=== PATIENT | female | born 1955 | race Caucasian/White ===

== ENCOUNTER → 2021-08-17 12:05 | Outpatient (CLI) | payer MEDICARE, OTHER, SELFPAY ==
[2021-08-17 13:08] LABS: Add Manual Diff / Slide Review NO; Basophils Absolute Auto 100 /uL (0-100); Eosinophils Absolute Auto 100 /uL (0-450); Eosinophils Percent Auto 2.3 % (2-4); Hematocrit 42.6 % (36-46); Hemoglobin 14.5 g/dL (12.0-16.0); Lymphocytes Absolute Auto 1900 /uL (1100-4500); Lymphocytes Percent Auto 33.2 % (25-40); Mean Corpuscular Hemoglobin 29.2 PG (26-34); Mean Corpuscular Volume 85.9 fL (80-100); Monocytes Absolute Auto 500 /uL (0-900); Monocytes Percent Auto 7.9 % (3-14); Neutrophils Absolute Auto 3200 /uL (1500-7000); Neutrophils Percent Auto 55.6 % (50-75); Platelet Count 302 X10^3/uL (150-400); Red Blood Cell Count 4.96 X10^6/uL (4.0-5.2); White Blood Cell Count 5.8 X10^3/uL (4.5-11.0)
[2021-08-17 13:34] LABS: Alanine Aminotransferase 17 IU/L (<35); Albumin 4.5 g/dL (3.5-5.0); Albumin Globulin Ratio 1.4 (1.0-2.8); Alkaline Phosphatase 91 U/L (38-126); Aspartate Aminotransferase 27 IU/L (14-36); BUN Creatinine Ratio 27.3 (6-22); Bilirubin Total 0.5 mg/dL (0.2-1.3); Blood Urea Nitrogen 18 mg/dL (7-17); Calcium 9.8 mg/dL (8.4-10.2); Carbon Dioxide 29 mmol/L (22-32); Chloride 106 mmol/L (98-107); Cholesterol 212 mg/dL (140-199); Estimated Glomerular Filt Rate > 60.0 mL/min (>60); Globulin 3.2 g/dL (1.7-4.1); Glucose 102 mg/dL (80-110); HDL Cholesterol 68 mg/dL (40-60); HEMOLYSIS < 15 (0-50); LDL Cholesterol Calculated 128 mg/dL (<100); Potassium 3.9 mmol/L (3.4-5.1); Sodium 140 mmol/L (137-145); Total Protein 7.7 g/dL (6.3-8.2); Triglycerides 82 mg/dL (35-150)
[2021-08-17 14:03] LABS: TSH w/ Reflex to FT4 4.37 uIU/mL (0.47-4.68)
[2021-08-17 14:51] LABS: Creatinine Urine Random 68.3 mg/dL
[2021-08-17 15:02] LABS: Microalbumin Urine Random < 0.6 mg/dL (0-1.6)
== END ==
PROVIDERS: Family Provider Internal Medicine Critical Care Medicine; Referring Provider Family Medicine; Visit Provider Family Medicine
DX: F32.9 Major depressive disorder, single episode, unspecified (principal); R53.82 Chronic fatigue, unspecified; F43.10 Post-traumatic stress disorder, unspecified; G89.29 Other chronic pain; M79.7 Fibromyalgia; M54.9 Dorsalgia, unspecified; J44.9 Chronic obstructive pulmonary disease, unspecified; E78.5 Hyperlipidemia, unspecified
CPT/HCPCS: 36415; 80053; 80061; 82043; 82570; 84443; 85025; 86769

== ENCOUNTER → 2021-08-18 12:49 | Outpatient (CLI) | payer MEDICARE, OTHER, SELFPAY ==
--- NOTE | 2021-08-18 12:54 | DI.CT.S_ITS ---
PROCEDURE: CT CHEST WO CON INDICATIONS: COPD, 30+ pack year history TECHNIQUE: Noncontrast 5 mm thick sections acquired from the pulmonary apices to the posterior costophrenic angles. 1 mm lung window, 5 mm thick coronal and sagittal and 7 mm axial MIP reformats were then acquired. For radiation dose reduction, the following was used: automated exposure control, adjustment of mA and/or kV according to patient size. COMPARISON: CR, CHEST 2 VIEW, 01/31/2016, 14:40. FINDINGS: Image quality: Excellent. Lungs and pleura: No acute air space opacities. No pleural effusions or pneumothorax. Central and peripheral airways are patent and normal in caliber. Emphysematous changes are present bilaterally with scattered chronic reticular opacities. Mediastinum: Heart size is normal. Mild minimal, 6 mm anterior pericardial effusion. No mediastinal adenopathy by size criteria. Thoracic aorta and central pulmonary arteries are normal in size. Esophagus is normal in caliber. No hiatal hernia. Bones and chest wall: No suspicious bony lesions. No vertebral body compression fractures. No axillary or supraclavicular adenopathy by size criteria. Thyroid gland is unremarkable . Abdomen: Visualized upper abdominal solid organs and bowel loops appear normal in the absence of contrast. IMPRESSION: 1. Prominent emphysematous changes without focal lesion. Dictated by: Olivia Rod M.D. on 08/18/2021 at 15:17 Approved by: Olivia Rod M.D. on 08/18/2021 at 15:19
== END ==
PROVIDERS: Family Provider Internal Medicine Critical Care Medicine; PCP Family Medicine; Referring Provider Family Medicine; Visit Provider Family Medicine
DX: J44.9 Chronic obstructive pulmonary disease, unspecified (principal); Z87.891 Personal history of nicotine dependence
CPT/HCPCS: 71250

== ENCOUNTER → 2021-09-17 14:40 | Outpatient (CLI) | payer MEDICARE, OTHER, SELFPAY ==
--- NOTE | 2021-09-17 14:41 | DI.ECHO.S_ITS ---
Version: 1 Study ID: [id number] [address] [place] [address] Name: CHECO RIVERA Study Date: 09/17/2021, 3: 00 PM : 1955 BP: 107 / 73 mmHg Gender: Female Height: 64 in Age: 65 Years Weight: 190 lb BSA: 1.91 mA? Referring: LA[place] ARZATE Clinician: FORREST BATES Reason For Study: Pericardial Effusion History: Summary Statements Normal sinus rhythm. Normal LV size, wall thickness, wall motion and LV systolic function. EF is 55-60%; stage I diastolic dysfunction. Normal chamber sizes. No significant valvular abnormalities. No pericardial nor pleural effusion. Compared to prior study in 2018, no changes have occurred. Procedure: A two-dimensional transthoracic echocardiogram with color flow and Doppler was performed. The study quality was technically adequate. Images from the parasternal window were difficult to obtain and are suboptimal in quality. Comparison is made with the echocardiogram of 10/09/2018. The patient was in normal sinus rhythm during the exam. Left Ventricle: The left ventricular ejection fraction is normal. The left ventricle is normal in size and wall thickness. Right Ventricle: The right ventricle is normal in size and function. Atria: There is no Doppler evidence for an interatrial shunt. The left atrial size is normal. The right atrium is mildly dilated. Mitral Valve: There is trace mitral regurgitation. The mitral valve is normal. Aortic Valve: There is trace aortic regurgitation. The aortic valve is trileaflet. The aortic valve opens well. Tricuspid Valve: There is a trace or physiologic amount of tricuspid regurgitation. Pulmonary artery pressures cannot be estimated because of the lack of a measurable TR jet velocity but the IVC suggests a CVP of around 3 mmHg. The tricuspid valve is normal. Pulmonic Valve: There is a trace or physiologic amount of pulmonic regurgitation. The pulmonic valve leaflets are thin and pliable; valve motion is normal. Great Vessels: The ascending aorta is at the upper limits of normal in size. The aortic arch is normal in size. The aortic root is normal size. The IVC is of normal diameter and collapses greater than 50% with a sniff. This suggests a low right atrial pressure of 3 mm Hg. Pericardium/ Pleura: There is an anterior echo-free space consistent with a fat pad. There is no pericardial effusion. There is no pleural effusion. 2D and M-Mode Measurements and Calculations LVIDd: 4.4 cm LVOT diam: 2.02 cm LVIDs: 3.0 cm Ao root diam: 3.0 cm IVSd: 0.61 cm asc Aorta Diam: 3.6 cm LVPWd: 0.78 cm Ao Arch Diam (Prox Trans): 2.45 cm LV martinez. diameter/BSA (cm/m^2): 2.29 LV sys. diameter/BSA (cm/m^2): 1.59 TAPSE: 2.39 cm LA A4 area: 14.6 msw? RA area: 16.1 msw? LA A2 area: 15.6 msw? RA long axis: 5.1 cm LA length (vol): 4.8 cm RA vol: 42.9 ml LA vol: 40.6 ml RA : 22.4 ml/mA? LA vol index: 21.2 ml/mA? Doppler Measurements and Calculations Ao V2 max: 142.3 cm/sec LVOT Max Tacos: 127.4 cm/sec Ao V2 mean: 100.3 cm/sec LV V1 max P.5 mmHg Ao V2 VTI: 30.0 cm LV V1 VTI: 26.1 cm Ao max P.1 mmHg Ao mean P.3 mmHg JAYY(I,D): 2.8 msw? JAYY(V,D): 2.9 msw? JAYY indexed to BSA (cm^2/m^2): 1.46 sev ratio: 0.87 MV E max tacos: 56.8 cm/sec MV dec time: 0.26 sec MV A max tacos: 64.7 cm/sec MV E/A: 0.88 Med Peak E' Tacos: 4.3 cm/sec Lat Peak E' Tacos: 6.1 cm/sec E/e' average: 11.2 PA V2 max: 64.9 cm/sec PA mean P.99 mmHg Electronically signed by: Rosanna Post M.D. 09/18/2021, 2: 01 AM
== END ==
PROVIDERS: Family Provider Internal Medicine Critical Care Medicine; PCP Family Medicine; Referring Provider Family Medicine; Visit Provider Family Medicine
DX: I31.3 Pericardial effusion (noninflammatory) (principal)
CPT/HCPCS: 93306

== ENCOUNTER → 2022-03-31 12:49 | Outpatient (CLI) | payer MEDICARE, OTHER, SELFPAY ==
[2022-03-31 13:48] LABS: Alanine Aminotransferase 18 IU/L (<35); Albumin 4.5 g/dL (3.5-5.0); Albumin Globulin Ratio 1.4 (1.0-2.8); Alkaline Phosphatase 96 U/L (38-126); Aspartate Aminotransferase 28 IU/L (14-36); BUN Creatinine Ratio 19.7 (6-22); Bilirubin Total 0.8 mg/dL (0.2-1.3); Blood Urea Nitrogen 13 mg/dL (7-17); Calcium 9.5 mg/dL (8.4-10.2); Carbon Dioxide 27 mmol/L (22-32); Chloride 105 mmol/L (98-107); Estimated Glomerular Filt Rate > 60 mL/min (>60); Globulin 3.2 g/dL (1.7-4.1); Glucose 100 mg/dL (80-110); HEMOLYSIS < 15 (0-50); Potassium 3.9 mmol/L (3.4-5.1); Sodium 138 mmol/L (137-145); Total Protein 7.7 g/dL (6.3-8.2)
[2022-03-31 14:05] LABS: Free T3, Triiodothyronine Free 3.96 pg/mL (2.77-5.27); Free T4, Direct Thyroxine 1.15 ng/dL (0.78-2.19)
[2022-03-31 14:18] LABS: Thyroid Stimulating Hormone 2.77 uIU/mL (0.47-4.68)
== END ==
PROVIDERS: Family Provider Internal Medicine Critical Care Medicine; PCP Family Medicine; Referring Provider Family Medicine; Visit Provider Family Medicine
DX: F32.9 Major depressive disorder, single episode, unspecified (principal); F41.9 Anxiety disorder, unspecified; F43.10 Post-traumatic stress disorder, unspecified; J44.9 Chronic obstructive pulmonary disease, unspecified
CPT/HCPCS: 36415; 80053; 84439; 84443; 84481

== ENCOUNTER → 2022-08-09 14:58 | Outpatient (CLI) | payer MEDICARE, OTHER, SELFPAY ==
--- NOTE | 2022-08-09 15:01 | DI.CT.S_ITS ---
PROCEDURE: CT LUNG LOW DOSE SCREENING INDICATIONS: 30+ pack year smoking history TECHNIQUE: Noncontrast 2.0-2.5 mm thick sections acquired from the pulmonary apices to the posterior costophrenic angles. 7 mm thick axial MIP, and 5 mm coronal and sagittal reformats were then acquired. A low radiation dose technique was utilized. COMPARISON: [facility], CT, CT CHEST WO CON, 08/18/2021, 12:57. FINDINGS: Image quality: Diagnostic, given the low radiation dose technique. Lungs and pleura: Moderate upper lobe predominant pulmonary emphysematous changes are again noted with stable right apical irregular scarring as well as right apical pleural scarring. No new or suspicious pulmonary nodules. No septal thickening or nodularity. Mild dependent bibasilar atelectasis. No pneumothorax or pleural effusion. Mediastinum: Heart size is normal. Trace pericardial effusion, likely physiologic. Moderate atherosclerotic calcifications of the thoracic aorta and coronary arteries. No mediastinal adenopathy by size criteria. Thoracic aorta and central pulmonary arteries are normal in size. Esophagus is normal in caliber. No hiatal hernia. Bones and chest wall: No suspicious bony lesions. No acute vertebral body compression fractures. Multilevel thoracic spondylosis. No axillary or supraclavicular adenopathy by size criteria. Thyroid gland is unremarkable.. Abdomen: Visualized upper abdomen solid organs and bowel loops appear normal in the absence of contrast. IMPRESSION: CT chest without acute cardiopulmonary abnormalities. No new or suspicious pulmonary nodules. Redemonstration of moderate upper lobe predominant pulmonary emphysematous changes. Stable scarring of the right apex as well as apical scarring of the right upper lobe. Moderate atherosclerotic vascular calcifications. LUNG-RADS 2; Recommend continued annual screening low-dose chest CT as long as patient continues to meet screening criteria. Dictated by: Ricardo Cooney M.D. on 08/09/2022 at 16:13 Approved by: Ricardo Cooney M.D. on 08/09/2022 at 16:20
== END ==
PROVIDERS: Family Provider Internal Medicine Critical Care Medicine; PCP Family Medicine; Referring Provider Family Medicine; Visit Provider Family Medicine
DX: J44.0 Chronic obstructive pulmonary disease with (acute) lower respiratory infection (principal); Z87.891 Personal history of nicotine dependence; I70.0 Atherosclerosis of aorta; I25.10 Atherosclerotic heart disease of native coronary artery without angina pectoris
CPT/HCPCS: 71250

== ENCOUNTER → 2022-10-06 12:57 | Outpatient (CLI) | payer MEDICARE, OTHER, SELFPAY ==
[2022-10-06 14:51] LABS: COVID19 -Nasal RAPID Negative (Negative)
== END ==
PROVIDERS: Family Provider Internal Medicine Critical Care Medicine; PCP Family Medicine; Visit Provider Surgery
DX: Z20.822 Contact with and (suspected) exposure to COVID-19 (principal); Z01.812 Encounter for preprocedural laboratory examination
CPT/HCPCS: 87635; C9803

== ENCOUNTER 2022-10-07 07:51 | Day surgery (SDC) | payer MEDICARE, OTHER, SELFPAY ==
--- NOTE | 2022-10-07 | PATH_ITS ---
[facility] Accession Number: [id number] No. of containers..01 Tissue . 01 Material submitted: . colon - SIGMOID POLYPS X2 . 01 Diagnosis: Sigmoid Colon Polyps, Biopsies: Hyperplastic polyp x2. MRV 10/12/2022 1245 Local . 01 Electronically signed: . Dereck Peralta MD, PhD, Pathologist NPI- [id number] . 01 Gross description: . SIGMOID POLYPS X2: Received in formalin are 2 fragment(s) of joya, soft tissue measuring 0.5 x 0.1 x 0.1 cm to 0.7 x 0.1 x 0.1 cm submitted entirely in 1 cassette(s) /AFTAB 10/10/2022 2254 Local . 01 Pathologist provided ICD-10: K63.5 . 01 CPT . 410439 Specimen Comment: A courtesy copy of this report has been sent to [facility] Pathology Performed at: 01 [facility] [address] [place] [address], [place], [place] [id number] MD Nithin Roque MD Phone: [phone]
[2022-10-07] MEDS: LACTATED RINGERS 1,000 ML 42 ML IV (08:02)
[2022-10-07 08:11] VITALS: BP 121/85; PULSE 70; RESP 16; TEMP 36.8; O2SAT 97; BMI 32.5
--- NOTE | 2022-10-07 08:39 | PM.HP.1 ---
History of Present Illness History of Present Illness Chief complaint: DX COLONOSCOPY Narrative: Ms. Andrews presents today for screening colonoscopy she has been over 5 years since her last colonoscopy and her previous 1 had some polyps that she recalls she was told were precancerous. Her follow-up. Was maybe 3 or 5 years she is definitely overdue she says. Her last colonoscopy was probably at [facility] because she lives in [place] though she is not sure. She has no family history of colon cancer her grandfather from prostate cancer. She has occasional bleeding but attributes this to hemorrhoids. She sometimes does have constipation and will shift between hard and soft bowel movements. Patient History Medical History (Updated 10/07/22 @ 08:40 by Antoinette Cantor MD) Ankle pain Anxiety Asthma Chronic back pain Chronic fatigue COPD (chronic obstructive pulmonary disease) COPD with exacerbation Depression Fibromyalgia (~1999) Headache History of smoking 30 or more pack years Osteoarthritis Osteoporosis PTSD (post-traumatic stress disorder) Restless leg syndrome Substance abuse (~07/1991) Surgical History (Updated 08/15/21 @ 16:10 by Mohini Boland) Anesthesia History of cholecystectomy History of tubal ligation Family & Social History Family History (Updated 08/15/21 @ 16:14 by Mohini Boland) Father Cancer Hyperlipidemia Mother Cancer History of heart disease Hypertension Hyperlipidemia Mental health problem Brother Diabetes mellitus History of heart disease Hyperlipidemia Hypertension Stroke Brother Hyperlipidemia Hypertension Sister Hyperlipidemia Hypertension Mental health problem Social History: household members spouse Tobacco & Substance use: Smoking Status Former smoker alcohol intake former Substance Use Type marijuana Meds Home Medications and Allergies Home Medications Medication Instructions Recorded Confirmed Type albuterol sulfate 90 mcg/actuation 2 puff inhalation Q6H PRN 08/05/22 10/07/22 Rx aerosol inhaler shortness of breath or wheezing #8.5 grams fluticasone 500 mcg-salmeterol 50 1 inh inhalation BID #60 ea 08/05/22 10/07/22 Rx mcg/dose blistr powdr for inhalation (Advair Diskus) hydroxyzine pamoate 25 mg capsule 25 mg PO BEDTIME #90 caps 08/05/22 10/07/22 Rx (Vistaril) thyroid (pork) 15 mg tablet (FACILITY SERVICE MANAGER 15 mg PO DAILY #90 tabs 08/05/22 10/07/22 Rx Thyroid) tiotropium bromide 2.5 2 puff inhalation QAM #4 grams 08/05/22 10/07/22 Rx mcg/actuation mist for inhalation (Spiriva Respimat) Allergies Allergy/AdvReac Type Severity Reaction Status Date / Time promethazine [From PHENERGAN] Allergy Unknown Verified 10/07/22 08:28 Exam Vital Signs (past 8 hours): - 10/07/22 08:11 Temperature 98.2 F Pulse Rate 70 Respiratory Rate 16 Blood Pressure 121/85 Pulse Oximetry 97 Oxygen Delivery Method Room Air Oxygen Delivery Method Room Air Const General: cooperative, healthy appearing and comfortable HENMT Head: normal to inspection Eyes General: appearance normal, both eyes and all related structures Resp Effort & Inspection: normal respiratory effort and able to speak in complete sentences Cardio Pulses: radial pulses present GI Palpation: soft and No tender Assessment & Plan Assessment and plan (1) Screen for colon cancer: Status: Acute Plan I discussed the risks benefits and alternatives to screening colonoscopy with Daysi Andrews she understands and would like to proceed. Time Spent With Patient Critical Care time: I spent a total of [] minutes of critical care time on this patient's care today; this time is exclusive of procedural time.
[2022-10-07 09:46] VITALS: BP 129/77; PULSE 64; TEMP 36.3; O2SAT 99
--- NOTE | 2022-10-07 09:48 | PM.OP.1 ---
Procedure & Clinicians Procedure: Screening colonoscopy with polypectomy Same procedure as scheduled: Yes Indications: Screening Surgeon: Antoinette Cantor Click Yes if Unassisted: Yes Operative Notes Procedure in detail: Patient was taken to the endoscopy suite placed left lateral decubitus lateral position. A time-out was performed. Sedation was administered by anesthesia team. A digital rectal exam was performed. And the colonoscope was introduced the prep was good, [place] bowel prep score 1. The colonoscope was advanced to the cecum photograph of the appendiceal orifice was obtained. The withdrawal time was 20 minutes including biopsy of 2 sigmoid polyps. These polyps were sent in the same specimen jar. They were small, not more than 5 mm in size. Complications: none Post-operative Disposition: PACU Plan for aftercare: Due to her history of polyps she should be continuing on a 5 year screening regimen. These polyps were small and will follow-up on the pathology perhaps if she has another clean colonoscopies she can stretch to a 10 year regimen without any history of colon cancer in her family and no changes in her symptoms.
[2022-10-07 09:50] VITALS: BP 133/83; PULSE 66; RESP 16; O2SAT 99
[2022-10-07 09:55] VITALS: BP 137/86; PULSE 63; RESP 22; O2SAT 97
[2022-10-07 10:00] VITALS: BP 132/85; PULSE 59; RESP 14; TEMP 35.9; O2SAT 99
[2022-10-07 11:15] VITALS: BP 123/78; PULSE 59; RESP 20; TEMP 36.3; O2SAT 97
--- NOTE | 2022-10-07 11:25 | SUR.PHASEII ---
Patient c/o feeling cold. Multiple warm blankets and hot chocolate provided.
== END 2022-10-07 10:23 | disposition home or self-care (01) ==
PROVIDERS: Family Provider Internal Medicine Critical Care Medicine; PCP Family Medicine; Referring Provider Surgery; Visit Provider Surgery
PROC: 0DJD8ZZ Inspection of Lower Intestinal Tract, Via Natural or Artificial Opening Endoscopic (ICD-10-PCS; CPT 45378; principal; 2022-10-07 08:45)
DX: Z12.11 Encounter for screening for malignant neoplasm of colon (principal); Z86.010 Personal history of colon polyps; K63.5 Polyp of colon
CPT/HCPCS: 45380; J2704

== ENCOUNTER → 2022-11-04 10:09 | Outpatient (CLI) | payer MEDICARE, OTHER, SELFPAY ==
[2022-11-04 12:05] LABS: Add Manual Diff / Slide Review NO; Basophils Absolute Auto 0 /uL (0-100); Basophils Percent Auto 0.7 % (0-2); Eosinophils Absolute Auto 100 /uL (0-450); Eosinophils Percent Auto 2.3 % (2-4); Hematocrit 38.9 % (36-46); Hemoglobin 13.4 g/dL (12.0-16.0); Lymphocytes Absolute Auto 2400 /uL (1100-4500); Lymphocytes Percent Auto 41.3 % (25-40); Mean Corpuscular HGB Conc 34.5 % (30-36); Mean Corpuscular Hemoglobin 29.2 PG (26-34); Mean Corpuscular Volume 84.5 fL (80-100); Monocytes Absolute Auto 500 /uL (0-900); Monocytes Percent Auto 8.9 % (3-14); Neutrophils Absolute Auto 2800 /uL (1500-7000); Neutrophils Percent Auto 46.8 % (50-75); Platelet Count 269 X10^3/uL (150-400); Red Cell Distribution Width 12.5 % (11.6-14.8); White Blood Cell Count 5.9 X10^3/uL (4.5-11.0)
[2022-11-04 12:56] LABS: Alanine Aminotransferase 17 IU/L (<35); Albumin 4.2 g/dL (3.5-5.0); Albumin Globulin Ratio 1.5 (1.0-2.8); Alkaline Phosphatase 80 U/L (38-126); Aspartate Aminotransferase 22 IU/L (14-36); BUN Creatinine Ratio 21.7 (6-22); Bilirubin Total 0.4 mg/dL (0.2-1.3); Blood Urea Nitrogen 15 mg/dL (7-17); Calcium 9.6 mg/dL (8.4-10.2); Carbon Dioxide 27 mmol/L (22-32); Chloride 104 mmol/L (98-107); Estimated Glomerular Filt Rate > 60 mL/min (>60); Globulin 2.8 g/dL (1.7-4.1); Glucose 84 mg/dL (80-110); HEMOLYSIS < 15 (0-50); Potassium 3.7 mmol/L (3.4-5.1); Sodium 142 mmol/L (137-145)
[2022-11-04 13:09] LABS: Free T3, Triiodothyronine Free 4.73 pg/mL (2.77-5.27); Free T4, Direct Thyroxine 1.15 ng/dL (0.78-2.19)
[2022-11-04 16:42] LABS: Cholesterol 191 mg/dL (140-199); HDL Cholesterol 51 mg/dL (40-60); LDL Cholesterol Calculated 105 mg/dL (<100); Triglycerides 173 mg/dL (35-150)
[2022-12-08 15:21] LABS: Epstein-Barr Anti-Diffuse 44.2
[2022-12-08 15:22] LABS: Epstein-Barr Anti R/D >600.0
== END ==
PROVIDERS: Family Provider Internal Medicine Critical Care Medicine; PCP Family Medicine; Referring Provider Family Medicine; Visit Provider Family Medicine
DX: E78.5 Hyperlipidemia, unspecified (principal); F41.9 Anxiety disorder, unspecified; J44.9 Chronic obstructive pulmonary disease, unspecified; M81.0 Age-related osteoporosis without current pathological fracture; R53.82 Chronic fatigue, unspecified; Z87.891 Personal history of nicotine dependence
CPT/HCPCS: 36415; 80053; 80061; 84439; 84443; 84481; 85025; 86663

== ENCOUNTER → 2023-02-07 12:07 | Outpatient (CLI) | payer MEDICARE, OTHER, SELFPAY ==
--- NOTE | 2023-02-07 12:10 | DI.RAD.S_ITS ---
Bone Density Report Name: CHECO RIVERA Age: 67 Sex: Female Ethnicity: White Date of : 1955 Indication: UNAPPROVED postmenopausal; screening for osteoporosis; Referring Provider: LA[place] ARZATE Study: Bone densitometry was performed. Exam Date: February 07, 2023 Accession number: [id number] Bone Density: Region BMD T-score Z-score Classification AP Spine(L1-L4) 0.718 -3.0 -1.2 Osteoporosis Femoral Neck (Left) 0.457 -3.5 -2.0 Osteoporosis Total Hip (Left) 0.577 -3.0 -1.8 Osteoporosis Femoral Neck (Right) 0.462 -3.5 -2.0 Osteoporosis Total Hip (Right) 0.556 -3.2 -1.9 Osteoporosis Total Hip Mean 0.566 -3.1 -1.9 Osteoporosis World Health Organization criteria for BMD impression classify patients as: Normal (T-score at or above -1.0), Osteopenia (T-score between -1.0 and -2.5), or Osteoporosis (T-score at or below -2.5). 10-year Fracture Risk: FRAX not reported because: Some T-score for Spine Total or Hip Total or Femoral Neck at or below -2.5 Impression: UNAPPROVED The patient has osteoporosis, based on the Left Femoral Neck T-score. Discussion: UNAPPROVED HIGH RISK OF FRACTURE. BONE DENSITY IS UNDESIRABLY LOW AT ONE OR MORE SKELETAL SITES, CONSISTENT WITH OSTEOPOROSIS. ALSO, BONE DENSITY IS LOWER THAN EXPECTED FOR AGE AND SEX AT ONE OR MORE SKELETAL SITES; RECOMMEND A DILIGENT SEARCH FOR SECONDARY CAUSES OF BONE LOSS. This patient's lowest T-score meets the World Health Organization's (WHO) criteria for osteoporosis at one or more sites (T-score -2.5 or below). In untreated patients, the risk of osteoporotic fracture increases approximately two-fold for each 1.0 SD decrease in T-score. Low bone density is not the only risk factor for fracture; also consider factors such as patient's age, frailty or poor health, risk of falling, risk of injury, previous osteoporotic fracture, family history of osteoporosis, cigarette smoking, low body weight, etc. Not everyone with low bone mineral density has osteoporosis; osteomalacia and other metabolic bone disorders should also be considered. Patients who have osteoporosis should be evaluated for specific diseases and conditions (secondary causes) that may cause or contribute to bone loss. The [place] Association of Clinical Endocrinologists (AACE) and National Osteoporosis Foundation (NOF) recommend pharmacologic intervention for all postmenopausal women whose T-score is in this range. Also, this patient's bone mineral density is below the range considered normal for healthy age-, sex-, and race-matched controls at least one site (Z-score -2.0 or below). This warrants careful evaluation for diseases and conditions that may contribute to accelerated bone loss. The patient should follow a healthful lifestyle (good nutrition with adequate calcium and vitamin D, and appropriate weight-bearing exercise). Follow-Up: UNAPPROVED Consider a repeat BMD and Vertebral Fracture Assessment (VFA) exam in 2 years or sooner if medically necessary, to reassess this patient's status. Reported by: WILL STEWART M.D on 02/07/2023 12:58:00 PM.
== END ==
PROVIDERS: Family Provider Internal Medicine Critical Care Medicine; PCP Family Medicine; Referring Provider Family Medicine; Visit Provider Family Medicine
DX: Z78.0 Asymptomatic menopausal state (principal); Z13.820 Encounter for screening for osteoporosis; M81.0 Age-related osteoporosis without current pathological fracture
CPT/HCPCS: 77080

== ENCOUNTER → 2023-11-03 12:55 | Outpatient (CLI) | payer MEDICARE, OTHER, SELFPAY ==
--- NOTE | 2023-11-03 12:56 | DI.CT.S_ITS ---
PROCEDURE: CT LUNG LOW DOSE SCREENING INDICATIONS: 30+ pack year smoking history TECHNIQUE: Noncontrast 2.0-2.5 mm thick sections acquired from the pulmonary apices to the posterior costophrenic angles. 7 mm thick axial MIP, and 5 mm coronal and sagittal reformats were then acquired. For radiation dose reduction, the following was used: automated exposure control, adjustment of mA and/or kV according to patient size. COMPARISON: [facility], CT, CT CHEST WO CON, 08/18/2021, 12:57. [facility], CT, CT LUNG LOW DOSE SCREENING, 08/09/2022, 15:09. FINDINGS: Image quality: Diagnostic, given the low radiation dose technique. Lungs and pleura: There is severe centrilobular emphysema with an apical predominance. Focal airspace opacities at the right apex are unchanged when compared with the study dated January 18, 2019 and suggest pulmonary scarring. No new acute airspace opacities or suspicious pulmonary nodules. No pleural effusion or pneumothorax. Mediastinum: Heart size is normal. No pericardial effusion. No mediastinal adenopathy by size criteria. Thoracic aorta and central pulmonary arteries are normal in size. Scattered atheromatous calcifications are present within the aortic arch. Esophagus is normal in caliber. No hiatal hernia. Bones and chest wall: No suspicious bony lesions. No vertebral body compression fractures. No axillary or supraclavicular adenopathy by size criteria. The thyroid is unremarkable. Upper Abdomen: Visualized upper abdomen solid organs and bowel loops appear normal in the absence of contrast. IMPRESSION: 1. Severe centrilobular emphysema. 2. No new suspicious pulmonary nodules or acute airspace opacities. LUNG-RADS 1; continued annual screening, if eligible. Clinically Significant Non-pulmonary Findings: None. Dictated by: Sheila Calderon M.D. on 11/03/2023 at 14:17 Approved by: Sheila Calderon M.D. on 11/03/2023 at 14:28
== END ==
PROVIDERS: Family Provider Internal Medicine Critical Care Medicine; PCP Family Medicine; Referring Provider Family Medicine; Visit Provider Family Medicine
DX: Z12.2 Encounter for screening for malignant neoplasm of respiratory organs (principal); J43.2 Centrilobular emphysema; Z87.891 Personal history of nicotine dependence; E78.2 Mixed hyperlipidemia; R79.89 Other specified abnormal findings of blood chemistry; Z79.899 Other long term (current) drug therapy
CPT/HCPCS: 71271

== ENCOUNTER → 2023-11-23 15:52 | Outpatient (CLI) | payer MEDICARE, OTHER, SELFPAY ==
[2023-11-23 16:54] LABS: Add Manual Diff / Slide Review NO; Basophils Absolute Auto 100 /uL (0-100); Basophils Percent Auto 0.7 % (0-2); Eosinophils Absolute Auto 200 /uL (0-450); Eosinophils Percent Auto 2.1 % (2-4); Hemoglobin 15.2 g/dL (12.0-16.0); Lymphocytes Absolute Auto 2400 /uL (1100-4500); Lymphocytes Percent Auto 31.8 % (25-40); Mean Corpuscular HGB Conc 35.4 % (30-36); Mean Corpuscular Hemoglobin 29.7 PG (26-34); Mean Corpuscular Volume 83.9 fL (80-100); Monocytes Absolute Auto 800 /uL (0-900); Neutrophils Absolute Auto 4100 /uL (1500-7000); Neutrophils Percent Auto 54.4 % (50-75); Platelet Count 270 X10^3/uL (150-400); Red Blood Cell Count 5.12 X10^6/uL (4.0-5.2); Red Cell Distribution Width 12.4 % (11.6-14.8); White Blood Cell Count 7.5 X10^3/uL (4.5-11.0)
[2023-11-23 17:26] LABS: Alanine Aminotransferase 21 IU/L (<35); Albumin 4.5 g/dL (3.5-5.0); Albumin Globulin Ratio 1.2 (1.0-2.8); Alkaline Phosphatase 105 U/L (38-126); Aspartate Aminotransferase 33 IU/L (14-36); BUN Creatinine Ratio 26.3 (6-22); Bilirubin Total 0.6 mg/dL (0.2-1.3); Blood Urea Nitrogen 15 mg/dL (7-17); Calcium 10.6 mg/dL (8.4-10.2); Carbon Dioxide 23 mmol/L (22-32); Chloride 105 mmol/L (98-107); Cholesterol 214 mg/dL (140-199); Estimated Glomerular Filt Rate > 60 mL/min (>60); Globulin 3.9 g/dL (1.7-4.1); Glucose 102 mg/dL (80-110); HDL Cholesterol 49 mg/dL (40-60); HEMOLYSIS < 15 (0-50); LDL Cholesterol Calculated 150 mg/dL (<100); Potassium 4.2 mmol/L (3.4-5.1); Sodium 136 mmol/L (137-145); Total Protein 8.4 g/dL (6.3-8.2); Triglycerides 74 mg/dL (35-150)
[2023-11-23 17:41] LABS: Free T4, Direct Thyroxine 1.31 ng/dL (0.78-2.19)
[2023-11-23 17:55] LABS: Thyroid Stimulating Hormone 3.42 uIU/mL (0.47-4.68)
[2023-11-24 04:08] LABS: Apolipoprotein B 110 mg/dL (<90)
[2023-11-25 04:10] LABS: Lipoprotein (a) 139.9 nmol/L (<75.0)
== END ==
PROVIDERS: Family Provider Internal Medicine Critical Care Medicine; PCP Family Medicine; Referring Provider Family Medicine; Visit Provider Family Medicine
DX: E78.2 Mixed hyperlipidemia (principal); R79.89 Other specified abnormal findings of blood chemistry; Z79.899 Other long term (current) drug therapy
CPT/HCPCS: 36415; 80053; 80061; 82172; 83695; 84439; 84443; 85025

== ENCOUNTER → 2023-11-28 16:40 | Outpatient (CLI) | payer MEDICARE, OTHER, SELFPAY ==
--- NOTE | 2023-11-28 16:42 | DI.RAD.S_ITS ---
PROCEDURE: XR LUMBAR SPINE MIN 4V INDICATIONS: chronic low back pain with radiculopathy TECHNIQUE: 5 views of the lumbar spine were acquired, including bilateral oblique views. COMPARISON: None. FINDINGS: Bones: 5 nonrib-bearing vertebrae are present. There is normal bony alignment. No vertebral body compression fractures. No suspicious bony lesions. Mild disc height loss at all levels. Soft tissues: Overlying bowel gas pattern is normal. No suspicious soft tissue calcifications. Oblique images: No pars defects. IMPRESSION: Mild, multilevel degenerative disc disease. Dictated by: Ian Anthony M.D. on 11/28/2023 at 17:09 Approved by: Ian Anthony M.D. on 11/28/2023 at 17:09
== END ==
PROVIDERS: Family Provider Internal Medicine Critical Care Medicine; PCP Family Medicine; Referring Provider Family Medicine; Visit Provider Family Medicine
DX: M79.7 Fibromyalgia (principal); M51.16 Intervertebral disc disorders with radiculopathy, lumbar region; G89.29 Other chronic pain
CPT/HCPCS: 72110

== ENCOUNTER → 2023-12-11 16:32 | Outpatient (CLI) | payer MEDICARE, OTHER, SELFPAY ==
--- NOTE | 2023-12-11 16:34 | DI.MRI.S_ITS ---
PROCEDURE: MR LUMBAR SPINE WO CON INDICATIONS: Chronic Back Pain TECHNIQUE: Noncontrast sagittal T1 spin echo and T2 fast echo, sagittal STIR, and T2 fast spin echo through the lumbar spine. In cases with scoliosis, additional coronal T2 fast spin echo may be performed. COMPARISON: [facility], CT, CT LUNG LOW DOSE SCREENING, 11/03/2023, 13:11. [facility], CR, XR LUMBAR SPINE MIN 4V, 11/28/2023, 16:44. FINDINGS: Image quality: Diagnostic, with note made of motion artifact. Alignment and Curvature: There is normal bony alignment. Bone Marrow: Marrow is of normal overall signal. No acute vertebral body compression fractures. There is a remote T12 central compression deformity, with twenty 30% loss of height centrally. Spinal Cord: Conus medullaris terminates at the L1 level. Visualized cord demonstrates normal signal and size. Paraspinous Soft Tissues: No paravertebral masses. T12-L1: Normal appearance. L1-L2: Normal appearance. L2-L3: Normal appearance. L3-L4: The disc height is well-preserved. Loss of disc signal is seen at this level. Mild to moderate disc bulge is seen, with a central disc protrusion. Mild facet joint hypertrophy is seen. There is at least moderate left-sided and moderate right-sided neural foraminal narrowing. Moderate central canal narrowing is seen. L4-L5: The disc height is well-preserved. Loss of disc signal is seen at this level. Moderate disc bulge is seen, which is eccentric to the left. Moderate facet joint hypertrophy is seen. There is at least moderate right-sided and moderate to severe left-sided neural foraminal narrowing. There is a degree of compression seen upon the exiting nerve roots. Mild central canal narrowing is seen. L5-S1: At least moderate loss of disc height and disc signal can be seen. At least moderate disc bulge is seen, which is eccentric to the right. Moderate facet joint hypertrophy is seen. There is at least moderate bilateral neural foraminal narrowing, right worse than left. There is a degree of compression seen upon the exiting nerve roots. Moderate central canal narrowing is seen. IMPRESSION: Lumbar spine degenerative changes are seen, which are overall most prominent at L5-S1. Additional findings: Remote T12 central compression deformity. Dictated by: Henry Mosley M.D. on 12/11/2023 at 16:40 Approved by: Henry Mosley M.D. on 12/11/2023 at 16:43
== END ==
PROVIDERS: Family Provider Internal Medicine Critical Care Medicine; PCP Family Medicine; Referring Provider Family Medicine; Visit Provider Family Medicine
DX: M47.27 Other spondylosis with radiculopathy, lumbosacral region (principal); M47.26 Other spondylosis with radiculopathy, lumbar region; M54.9 Dorsalgia, unspecified; G89.29 Other chronic pain
CPT/HCPCS: 72148

== ENCOUNTER → 2024-01-01 12:07 | Outpatient (CLI) | payer MEDICARE, OTHER, SELFPAY ==
[2024-01-01 13:09] LABS: Alanine Aminotransferase 17 IU/L (<35); Albumin 4.1 g/dL (3.5-5.0); Albumin Globulin Ratio 1.4 (1.0-2.8); Alkaline Phosphatase 80 U/L (38-126); Aspartate Aminotransferase 26 IU/L (14-36); BUN Creatinine Ratio 19.1 (6-22); Bilirubin Total 0.6 mg/dL (0.2-1.3); Blood Urea Nitrogen 13 mg/dL (7-17); Carbon Dioxide 27 mmol/L (22-32); Chloride 106 mmol/L (98-107); Cholesterol 138 mg/dL (140-199); Estimated Glomerular Filt Rate > 60 mL/min (>60); Globulin 2.9 g/dL (1.7-4.1); Glucose 90 mg/dL (80-110); HDL Cholesterol 67 mg/dL (40-60); HEMOLYSIS < 15 (0-50); LDL Cholesterol Calculated 59 mg/dL (<100); Potassium 4.1 mmol/L (3.4-5.1); Sodium 139 mmol/L (137-145); Triglycerides 61 mg/dL (35-150)
[2024-01-02 09:36] LABS: Apolipoprotein B 54 mg/dL (<90)
[2024-01-04 07:13] LABS: Calcium 9.7 mg/dL (8.7-10.3); Parathyroid Hormone, Intact 24 pg/mL (15-65)
[2024-01-08 16:12] LABS: Albumin 3.6 g/dL (2.9-4.4); Alpha-1-Globulin 0.2 g/dL (0.0-0.4); Alpha-2-Globulin 0.7 g/dL (0.4-1.0); Globulin Total 2.9 g/dL (2.2-3.9); Protein, Total 6.5 g/dL (6.0-8.5)
== END ==
LOC: LAB 12:08
PROVIDERS: Family Provider Internal Medicine Critical Care Medicine; PCP Family Medicine; Referring Provider Family Medicine; Visit Provider Family Medicine
DX: R53.82 Chronic fatigue, unspecified (principal); E78.5 Hyperlipidemia, unspecified; J44.9 Chronic obstructive pulmonary disease, unspecified; F32.9 Major depressive disorder, single episode, unspecified; E78.41 Elevated Lipoprotein(a); E83.52 Hypercalcemia; R77.9 Abnormality of plasma protein, unspecified; Z87.891 Personal history of nicotine dependence
CPT/HCPCS: 36415; 80053; 80061; 82172; 82310; 83970; 84155; 84165

== ENCOUNTER → 2024-01-04 14:00 | Outpatient (CLI) | payer MEDICARE, OTHER, SELFPAY | PROVIDERS: Family Provider Internal Medicine Critical Care Medicine; PCP Family Medicine; Referring Provider Family Medicine; Visit Provider Family Medicine | DX: R53.82 Chronic fatigue, unspecified (principal); J44.9 Chronic obstructive pulmonary disease, unspecified; F32.9 Major depressive disorder, single episode, unspecified; E78.00 Pure hypercholesterolemia, unspecified; E78.41 Elevated Lipoprotein(a); M51.16 Intervertebral disc disorders with radiculopathy, lumbar region; M47.26 Other spondylosis with radiculopathy, lumbar region; M79.7 Fibromyalgia; M54.9 Dorsalgia, unspecified; G89.29 Other chronic pain; Z87.891 Personal history of nicotine dependence | CPT/HCPCS: 84156; 84166; 99214 ==

== ENCOUNTER → 2024-01-25 15:09 | Outpatient (CLI) | payer MEDICARE, OTHER, SELFPAY ==
--- NOTE | 2024-01-25 15:10 | DI.MG.S_ITS ---
BILATERAL DIGITAL SCREENING MAMMOGRAM 3D/2D WITH CAD: 01/25/2024 CLINICAL: Routine screening. Comparison is made to exams dated: 07/26/2022 mammogram and 09/04/2020 mammogram - [facility]. Both breasts are almost entirely fatty (category a/<25% glandular tissue). Current study was also evaluated with a Computer Aided Detection (CAD) system. No significant masses, calcifications, or other findings are seen in either breast. There has been no significant interval change. IMPRESSION: NEGATIVE There is no mammographic evidence of malignancy. A 1 year screening mammogram is recommended. Based on the Tyrer Cuzick model (a risk assessment model) the patient's lifetime risk is 2.7% and her 10 year risk is 1.3%. According to the ACR, ACS, and NCCN guidelines, an annual breast MRI exam along with mammogram is recommended if the patient's lifetime risk is 20% or greater. This exam was interpreted at Station ID: [id number]. NOTE: For mammograms, a report in lay terms will be sent to the patient. Approximately 15% of breast malignancies will not be visualized mammographically. In the management of a palpable breast mass, a negative mammogram must not discourage biopsy of a clinically suspicious lesion. Electronically Signed By: Quan gandhi/germain:01/25/2024 16:01:33 letter sent: Normal Exam ACR BI-RADS Category 1: Negative [id number]
== END ==
LOC: MAMMO 15:10
PROVIDERS: Family Provider Internal Medicine Critical Care Medicine; PCP Family Medicine; Referring Provider Family Medicine; Visit Provider Family Medicine
DX: Z12.31 Encounter for screening mammogram for malignant neoplasm of breast (principal)
CPT/HCPCS: 77063; 77067

== ENCOUNTER 2024-02-14 14:32 | Outpatient (CLI) | payer MEDICARE, OTHER, SELFPAY ==
[2024-02-14] VITALS (9 sets, daily range): BP systolic 117–143; BP diastolic 67–90; PULSE 63–73; RESP 11–20; TEMP 36.4; O2SAT 94–100
[2024-02-14] MEDS: DEXAMETHASONE 10 MG/ML VIAL INJ (15:23)
[2024-02-14] MEDS: MIDAZOLAM 2 MG/2 ML VIAL IV (15:23)
[2024-02-14] MEDS: iopamidoL 15 ML VIAL 3 ML INJ (15:25)
--- NOTE | 2024-02-14 15:30 | DI.RAD.S_ITS ---
PROCEDURE: PAIN L INTERLAMINAR/CAUDAL INJ INDICATIONS: radiculopathy COMPARISON: None. FINDINGS: Fluoroscopic spot filming was performed to verify placement of spinal needles at the L4-5 level(s), as labeled on the films. Appropriate location(s) of the needle tip(s) was confirmed by injection of iodinated contrast. IMPRESSION: Intra procedural examination demonstrating appropriate positions of the needles. Dictated by: Cristofer Pineda M.D. on 02/14/2024 at 16:13 Approved by: Cristofer Pineda M.D. on 02/14/2024 at 16:18
--- NOTE | 2024-02-14 15:51 | P.PCN_ITS ---
Date/Time/Diagnoses Date of procedure: 02/14/24 Time of procedure: 15:30 Procedure Notes Physician: Jimmy Corcoran Total Fluoroscopy time (seconds): 19 Total sedation minutes: 10 Procedure in detail & Post-procedure care: L5-S1 Interlaminar Epidural Steroid Injection Indications: Ever is presenting for treatment of lumbar radiculopathy with low back and leg pain. Preoperative diagnosis: Lumbar radiculopathy Postoperative diagnosis: Same Focused Examination: Ax3 Mood and affect are normal Vital Signs: VSS ASA: 2 Consent: Following review of allergies and potential side effects/complications, including, but not necessarily limited to, infection, allergic reaction, local tissue breakdown, stroke, temporary or permanent nerve injury, paralysis, and possible , the patient indicated that they understood and agreed to pr oceed.? An informed consent document was signed by the patient, witnessed by a nurse and placed in the patient's chart.? Additionally, other treatment options including medications and physical therapy were reviewed with the patient. All questions were answered. Site was then marked. Anesthesia: After review of previous anesthetic history and IV conscious sedation, the patient was deemed safe to proceed with today's procedure with IV conscious sedation. IV sedation was accomplished with midazolam 2 mg administered by the RN after order by Dr. Corcoran. Sedation was titrated to patient comfort during the course of the procedure. Patient remained responsive to all verbal commands. Position: Prone Monitoring: NIBP, Pulse oximetry, 3 lead EKG Needle used: 18 G 3.5? Tuohy Contrast: Isovue 300M Injectate: Dexamethasone 10 mg with 1% lidocaine 2 mL Technique: The skin was prepped with chloraprep and then draped in a sterile fashion. Time out was performed as per protocol. Oxygen applied via NC. Skin and subcutaneous structures of the needle entry site was then infiltrated with 3 mL of lidocaine 1%. Under AP, lateral and contralateral oblique fluoroscopic control, the Tuohy needle was guided into the L5-S1 epidural space. The space was accessed with loss of resistance technique. Isovue 300M was then injected and the spread was consistent with the epidural space. There was no evidence for intravascular or intrathecal uptake. After negative aspiration, the above- mentioned injectate was then slowly administered and the needle withdrawn. The patient expressed no unusual discomfort or paresthesias during the injection. Band-Aids applied to injection sites. EBL: less than 1 ml Complications: None Post Procedure: Patient was taken to the recovery and monitored. The patient was provided a Pain Log to continue to record the patient's response to the target- specific procedure prior to the patient's follow-up visit with the referring physician. Patient was stable upon discharge. Detailed post procedure instructions were provided. Patient was asked to call in the event of worsening pain, fever, weakness, numbness or bladder or bowel incontinence.
== END 2024-02-14 16:01 | disposition home or self-care (01) ==
PROVIDERS: Family Provider Internal Medicine Critical Care Medicine; PCP Family Medicine; Referring Provider Anesthesiology; Visit Provider Anesthesiology
DX: M54.16 Radiculopathy, lumbar region (principal)
CPT/HCPCS: 62323; 99152; J1100; J2250

== ENCOUNTER → 2024-06-12 | Outpatient (CLI) | payer MEDICARE, OTHER, SELFPAY ==
[2024-06-12 12:56] VITALS: BP 137/74; PULSE 72; RESP 16; TEMP 36.4; O2SAT 94
[2024-06-12 13:10] VITALS: BP 140/85; PULSE 63; RESP 14; O2SAT 97
--- NOTE | 2024-06-12 13:21 | EKG_ITS ---
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
--- NOTE | 2024-06-12 13:31 | PC.NURSE ---
While Dr Corcoran was preping and cleaned back patients heart Rhythm noted to be abnormal reg a-flutter. Patient denies any chest pain, SOB, headache or heart palpations. MD stopped procedure, before starting to sit on side of table heart rhythm went back into NSR. New order for 12 lead EKG.
--- NOTE | 2024-06-12 13:47 | PC.NURSE ---
Patient in Pain recovery room after aborted IRIS, due to heart Rhythm changes prior to procedure start. Patient in a Normal Sinus Rhythm upon arrival to this room. 12 lead EKG ordered by Dr. Corcoran and performed by Nish in RT. Patient denies chest pain, SOB or other cardiac symptoms. Dr. Corcoran viewed EKG results and instructed patient to make an appointment with her PCM Dr. Kraft. Patient also instructed to return to the ER if she has chest pain, shortness of breath or any other distress symptoms. Patient verbalized understanding. Dr. Corcoran gave verbal okay for patient to D/C home.
== END ==
PROVIDERS: Family Provider Internal Medicine Critical Care Medicine; PCP Family Medicine; Referring Provider Anesthesiology; Visit Provider Anesthesiology
DX: M54.16 Radiculopathy, lumbar region; I48.92 Unspecified atrial flutter
CPT/HCPCS: 93005; 93010; J1100

== ENCOUNTER → 2024-06-14 13:39 | Outpatient (CLI) | payer MEDICARE, OTHER, SELFPAY ==
--- NOTE | 2024-06-14 14:09 | EKG_ITS ---
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
== END ==
LOC: LAB 13:40 → RESP 13:40
PROVIDERS: Family Provider Internal Medicine Critical Care Medicine; PCP Family Medicine; Referring Provider Family Medicine; Visit Provider Family Medicine
DX: I49.9 Cardiac arrhythmia, unspecified (principal)
CPT/HCPCS: 93005

== ENCOUNTER 2024-07-03 12:37 | Outpatient (CLI) | payer MEDICARE, OTHER, SELFPAY ==
[2024-07-03] VITALS (9 sets, daily range): BP systolic 110–144; BP diastolic 69–85; PULSE 60–74; RESP 16–20; TEMP 36; O2SAT 94–100
[2024-07-03] MEDS: MIDAZOLAM 2 MG/2 ML VIAL IV (13:29)
--- NOTE | 2024-07-03 13:30 | DI.RAD.S_ITS ---
PROCEDURE: PAIN L INTERLAMINAR/CAUDAL INJ INDICATIONS: SPONDYLOSIS COMPARISON: [facility], XA, PAIN L INTERLAMINAR/CAUDAL INJ, 02/14/2024, 15:24. FINDINGS: Fluoroscopic spot filming was performed to verify placement of spinal needles at the L5-S1 level(s), as labeled on the films. Appropriate location(s) of the needle tip(s) was confirmed by injection of iodinated contrast. IMPRESSION: Fluoroscopy for L5-S1 epidural steroid injection. Dictated by: Kalani Thomas M.D. on 07/03/2024 at 16:40 Approved by: Kalani Thomas M.D. on 07/03/2024 at 16:40
[2024-07-03] MEDS: DEXAMETHASONE 10 MG/ML VIAL INJ (13:33)
[2024-07-03] MEDS: iopamidoL 15 ML VIAL 3 ML INJ (13:33)
[2024-07-03] MEDS: LIDOCAINE 1% (PF) 5 ML INJ (13:34)
--- NOTE | 2024-07-03 14:43 | P.PCN_ITS ---
Date/Time/Diagnoses Date of procedure: 07/03/24 Time of procedure: 13:30 Procedure Notes Physician: Jimmy Corcoran Total Fluoroscopy time (seconds): 13 Total sedation minutes: 11 Procedure in detail & Post-procedure care: L5-S1 Interlaminar Epidural Steroid Injection Indications: Ever is presenting for treatment of lumbar radiculopathy with low back and leg pain. Preoperative diagnosis: Lumbar radiculopathy Postoperative diagnosis: Same Focused Examination: Ax3 Mood and affect are normal Vital Signs: VSS ASA: 2 Consent: Following review of allergies and potential side effects/complications, including, but not necessarily limited to, infection, allergic reaction, local tissue breakdown, stroke, temporary or permanent nerve injury, paralysis, and possible , the patient indicated that they understood and agreed to pro ceed.? An informed consent document was signed by the patient, witnessed by a nurse and placed in the patient's chart.? Additionally, other treatment options including medications and physical therapy were reviewed with the patient. All questions were answered. Site was then marked. Anesthesia: After review of previous anesthetic history and IV conscious sedation, the patient was deemed safe to proceed with today's procedure with IV conscious sedation. IV sedation was accomplished with midazolam 2 mg administered by the RN after order by Dr. Corcoran. Sedation was titrated to patient comfort during the course of the procedure. Patient remained responsive to all verbal commands. Position: Prone Monitoring: NIBP, Pulse oximetry, 3 lead EKG Needle used: 18 G 3.5? Tuohy Contrast: Isovue 300M Injectate: Dexamethasone 10 mg with 1% lidocaine 2 mL Technique: The skin was prepped with chloraprep and then draped in a sterile fashion. Time out was performed as per protocol. Oxygen applied via NC. Skin and subcutaneous structures of the needle entry site was then infiltrated with 3 mL of lidocaine 1%. Under AP, lateral and contralateral oblique fluoroscopic control, the Tuohy needle was guided into the L5-S1 epidural space. The space was accessed with loss of resistance technique. Isovue 300M was then injected and the spread was consistent with the epidural space. There was no evidence for intravascular or intrathecal uptake. After negative aspiration, the above- mentioned injectate was then slowly administered and the needle withdrawn. The patient expressed no unusual discomfort or paresthesias during the injection. Band-Aids applied to injection sites. EBL: less than 1 ml Complications: None Post Procedure: Patient was taken to the recovery and monitored. The patient was provided a Pain Log to continue to record the patient's response to the target- specific procedure prior to the patient's follow-up visit with the referring physician. Patient was stable upon discharge. Detailed post procedure instructions were provided. Patient was asked to call in the event of worsening pain, fever, weakness, numbness or bladder or bowel incontinence.
== END 2024-07-03 14:00 | disposition home or self-care (01) ==
PROVIDERS: Family Provider Internal Medicine Critical Care Medicine; PCP Family Medicine; Referring Provider Anesthesiology; Visit Provider Anesthesiology
DX: M54.16 Radiculopathy, lumbar region (principal)
CPT/HCPCS: 62323; 99152; J1100; J2250

== ENCOUNTER → 2024-12-03 13:43 | Outpatient (CLI) | payer MEDICARE, OTHER, SELFPAY ==
[2024-12-03 14:32] LABS: Add Manual Diff / Slide Review NO; Basophils Absolute Auto 0 /uL (0-100); Basophils Percent Auto 0.8 % (0-2); Eosinophils Absolute Auto 100 /uL (0-450); Eosinophils Percent Auto 2.5 % (2-4); Hematocrit 41.8 % (36-46); Hemoglobin 14.2 g/dL (12.0-16.0); Lymphocytes Absolute Auto 1900 /uL (1100-4500); Lymphocytes Percent Auto 32.5 % (25-40); Mean Corpuscular Hemoglobin 29.2 PG (26-34); Mean Corpuscular Volume 85.9 fL (80-100); Monocytes Absolute Auto 500 /uL (0-900); Monocytes Percent Auto 8.5 % (3-14); Neutrophils Absolute Auto 3300 /uL (1500-7000); Neutrophils Percent Auto 55.7 % (50-75); Platelet Count 266 X10^3/uL (150-400); Red Blood Cell Count 4.87 X10^6/uL (4.0-5.2); Red Cell Distribution Width 12.8 % (11.6-14.8); White Blood Cell Count 5.9 X10^3/uL (4.5-11.0)
[2024-12-03 14:50] LABS: Alanine Aminotransferase 20 IU/L (<35); Albumin 4.6 g/dL (3.5-5.0); Albumin Globulin Ratio 1.6 (1.0-2.8); Alkaline Phosphatase 77 U/L (38-126); Aspartate Aminotransferase 33 IU/L (14-36); BUN Creatinine Ratio 30.3 (6-22); Blood Urea Nitrogen 20 mg/dL (7-17); Carbon Dioxide 26 mmol/L (22-32); Chloride 107 mmol/L (98-107); Cholesterol 169 mg/dL (140-199); Estimated Glomerular Filt Rate > 60 mL/min (>60); Globulin 2.9 g/dL (1.7-4.1); Glucose 101 mg/dL (80-110); HDL Cholesterol 77 mg/dL (40-60); HEMOLYSIS 29 (0-50); LDL Cholesterol Calculated 83 mg/dL (<100); Potassium 4.4 mmol/L (3.4-5.1); Sodium 141 mmol/L (137-145); Total Protein 7.5 g/dL (6.3-8.2); Triglycerides 45 mg/dL (35-150)
[2024-12-03 15:08] LABS: Free T3, Triiodothyronine Free 6.28 pg/mL (2.77-5.27); Free T4, Direct Thyroxine 1.32 ng/dL (0.78-2.19)
[2024-12-03 15:21] LABS: TSH w/ Reflex to FT4 2.28 uIU/mL (0.47-4.68)
[2024-12-04 04:12] LABS: Apolipoprotein B 65 mg/dL (<90)
== END ==
PROVIDERS: Family Provider Internal Medicine Critical Care Medicine; PCP Family Medicine; Referring Provider Family Medicine; Visit Provider Family Medicine
DX: I49.9 Cardiac arrhythmia, unspecified (principal); E78.41 Elevated Lipoprotein(a); E78.2 Mixed hyperlipidemia; E83.52 Hypercalcemia; F43.10 Post-traumatic stress disorder, unspecified
CPT/HCPCS: 80053; 80061; 82172; 84439; 84443; 84481; 85025

== ENCOUNTER → 2025-03-26 16:57 | Outpatient (CLI) | payer MEDICARE, OTHER, SELFPAY ==
--- NOTE | 2025-03-26 16:58 | DI.MG.S_ITS ---
MM screening mammo BI: 03/26/2025. BI-RADS: 1 CLINICAL: 69-year old female for bilateral screening mammogram. Tyrer-Cuzick lifetime risk of 1.7%. No personal or first-degree family history of breast cancer. PRIOR EXAMS 01/25/2024, 07/26/2022, 09/04/2020. MAMMOGRAPHY TECHNIQUE: 2D and 3D (tomosynthesis) digital mammographic views obtained, with additional images as needed for full coverage. Current study was also evaluated with a Computer Aided Detection (CAD) system. DENSITY A. The breasts are almost entirely fatty. MAMMOGRAPHY FINDINGS Bilateral: No suspicious mass, asymmetry, microcalcification, or other abnormality seen. IMPRESSION: * No evidence of malignancy. RECOMMENDATIONS Bilateral * Annual screening mammography. OVERALL ASSESSMENT CATEGORY BI-RADS-1: Negative. The [employer] recommends annual screening mammography beginning at age 40 for women with average risk of breast cancer. ELECTRONICALLY SIGNED: Quan Key M.D. on 03/31/2025 at 02:03:50 PM PT Interpreting Station ID: [id number]
== END ==
PROVIDERS: Family Provider Internal Medicine Critical Care Medicine; PCP Family Medicine; Referring Provider Family Medicine; Visit Provider Family Medicine
DX: Z12.31 Encounter for screening mammogram for malignant neoplasm of breast (principal); R92.313 Mammographic fatty tissue density, bilateral breasts
CPT/HCPCS: 77063; 77067

== ENCOUNTER → 2025-05-12 13:08 | Outpatient (CLI) | payer MEDICARE, OTHER, SELFPAY | LOC: RESP 13:08 | PROVIDERS: Family Provider Internal Medicine Critical Care Medicine; PCP Family Medicine; Referring Provider Internal Medicine Critical Care Medicine; Visit Provider Internal Medicine Critical Care Medicine | DX: R06.09 Other forms of dyspnea (principal); Z87.891 Personal history of nicotine dependence; R94.2 Abnormal results of pulmonary function studies | CPT/HCPCS: 94060; 94726; 94729 ==

== ENCOUNTER → 2025-05-14 13:47 | Outpatient (CLI) | payer MEDICARE, OTHER, SELFPAY ==
--- NOTE | 2025-05-14 13:49 | DI.ECHO.S_ITS ---
[facility] : : [address] : : [place] : : [address] : : Phone: [phone] Echocardiogram Report + + :Name: CHECO RIVERA Study Date: 05/14/2025 Height: 64 in : :Hospital ReadingLocation: Weight: 200 lb : : Gender: Female BSA: 2.0 m2 : :: 1955 Age: 69 yrs BP: 168/101 mmHg: :Reason For Study: CHRONIC FATIGUE, LUNG CANCER : :Ordering Physician: HUEY, : :LAKE Performed By: Riaz Banerjee : :Referring: LAKE ARZATE : + + Interpretation Summary 1. Left ventricular contractility is normal. Estimate ejection fraction is greater than 55% with no segmental wall motion abnormalities. No LVH. Normal diastolic function. 2. The right ventricular contractility is normal. 3. All cardiac chambers are of normal size. 4. No significant valvular abnormalities. 5. No obvious intracardiac shunts. 6. No obvious intracardiac masses nor thrombi. 7. No hemodynamically significant pericardial effusion increased echogenic shadowing noted in the pericardium. This is of unclear etiology. 8. Low right-sided filling pressures. Conclusion: Normal biventricular function with no significant valvular abnormalities. When compared with previous echocardiogram, there may be an increase in pericardial thickness. Procedure: A two-dimensional transthoracic echocardiogram with color flow and Doppler was performed. The study quality was technically good. Comparison is made with the echocardiogram of 09/17/2021. The patient was in normal sinus rhythm during the exam. Left Ventricle: The left ventricle is normal in size. There is normal left ventricular wall thickness. There is no ventricular septal defect visualized. The ejection fraction is estimated to be 55-60%. There are no focal wall motion abnormalities. Right Ventricle: The right ventricle is normal in size and function. Atria: The left atrial size is normal. Right atrial size is normal. There is no Doppler evidence for an atrial septal defect. Mitral Valve: The mitral valve leaflets appear normal. There is no evidence of stenosis, fluttering, or prolapse. There is trace mitral regurgitation. Aortic Valve: The aortic valve is trileaflet. The aortic valve opens well. No aortic regurgitation is present. Tricuspid Valve: The tricuspid valve leaflets are thin and pliable. No tricuspid regurgitation. Pulmonic Valve: The pulmonic valve is not well visualized. There is no pulmonic valvular regurgitation. Great Vessels: The aortic root is normal size. The ascending aorta is mildly enlarged. The pulmonary artery is normal size. The IVC is of normal diameter and collapses greater than 50% with a sniff. This suggests a low right atrial pressure of 3 mm Hg. Pericardium/ Pleura There is pericardial thickening and/or a small pericardial effusion. There is no pleural effusion. MMode/2D Measurements & Calculations LVIDd: 4.8 cm LVOT diam: 2.1 cm LVIDs: 3.0 cm Ao root diam: 3.2 cm FS: 36.5 % asc Aorta Diam: 3.8 cm EPSS: 0.58 cm Ao Arch Diam (Prox Trans): 1.8 cm IVSd: 0.98 cm LVPWd: 1.00 cm LV martinez. diameter/BSA (cm/m^2): 2.4 LV sys. diameter/BSA (cm/m^2): 1.5 LA A2 area: 18.1 cm2 RA long axis: 3.9 cm LA A4 area: 19.1 cm2 RA area: 13.2 cm2 LA length (vol): 5.3 cm RA vol: 37.7 ml LA vol: 55.4 ml RA : 19.3 ml/m2 LA vol index: 28.3 ml/m2 IVC diam: 1.9 cm RVD1 (basal): 3.0 cm RVD2 (mid): 2.7 cm TAPSE: 2.5 cm Doppler Measurements & Calculations Ao V2 max: 161.2 cm/sec LVOT Max Tacos: 136.8 cm/sec Ao V2 mean: 116.5 cm/sec LV V1 max P.5 mmHg Ao max P.4 mmHg LV V1 VTI: 30.3 cm Ao mean P.9 mmHg JAYY(I,D): 2.7 cm2 Ao V2 VTI: 38.1 cm JAYY(V,D): 2.9 cm2 sev ratio: 0.80 JAYY indexed to BSA (cm^2/m^2): 1.4 MV E max tacos: 61.2 cm/sec PA V2 max: 111.7 cm/sec MV A max tacos: 87.4 cm/sec PA V2 mean: 80.5 cm/sec MV E/A: 0.70 PA mean P.8 mmHg Med Peak E' Tacos: 4.8 cm/sec PA pr(Accel): 56.7 mmHg E/E' med: 12.9 Lat Peak E' Tacos: 8.4 cm/sec E/E' lat: 7.3 E/e' average: 10.1 MV dec time: 0.29 sec SV(LVOT): 104.1 ml Reading Physician:GIA
--- NOTE | 2025-05-14 13:49 | DI.CT.S_ITS ---
PROCEDURE: CT LUNG LOW DOSE SCREENING INDICATIONS: lung cancer screening TECHNIQUE: Noncontrast 2.0-2.5 mm thick sections acquired from the pulmonary apices to the posterior costophrenic angles. 7 mm thick axial MIP, and 5 mm coronal and sagittal reformats were then acquired. For radiation dose reduction, the following was used: automated exposure control, adjustment of mA and/or kV according to patient size. COMPARISON: [facility], CT, CT LUNG LOW DOSE SCREENING, 11/03/2023, 13:11. FINDINGS: Image quality: Diagnostic. Lower Neck: No enlarged lymph nodes. Thyroid: No thyroid nodules which require sonographic follow up, per consensus guidelines. Axillae: No enlarged lymph nodes. Chest Wall: Unremarkable. Bones: No suspicious osseous lesion. Lungs and Pleura: No pneumothorax or pleural effusions. Severe emphysematous change. Irregular opacity in the right upper lobe measuring 2.7 cm, (3/72), increased. Small opacity at the right apex, (3/59), unchanged. Heart: Heart size is normal. Three-vessel coronary artery calcifications. Mild pericardial effusion. Thoracic Vessels: The aorta and pulmonary arteries demonstrate normal size. Mediastinum and Lawanda: No enlarged lymph nodes. Right lower paratracheal lymph node measuring 0.7 cm, (2/40). Esophagus: No wall thickening. No hiatal hernia. Upper Abdomen: Visualized upper abdomen solid organs and bowel loops appear normal. IMPRESSION: Irregular opacity in the right upper lobe measuring 2.7 cm is increased. LUNG-RADS 4B; recommend CT chest with contrast. PET/CT would also be helpful for further evaluation. Clinically Significant Non-pulmonary Findings: Moderate to severe coronary artery calcifications. Dictated by: Quan Key M.D. on 05/15/2025 at 13:37 Approved by: Quan Key M.D. on 05/15/2025 at 13:49
== END ==
PROVIDERS: Family Provider Internal Medicine Critical Care Medicine; PCP Family Medicine; Referring Provider Family Medicine; Visit Provider Family Medicine
DX: Z12.2 Encounter for screening for malignant neoplasm of respiratory organs (principal); I31.39 Other pericardial effusion (noninflammatory); Z87.891 Personal history of nicotine dependence; I25.10 Atherosclerotic heart disease of native coronary artery without angina pectoris; I49.9 Cardiac arrhythmia, unspecified; R53.82 Chronic fatigue, unspecified; I77.89 Other specified disorders of arteries and arterioles
CPT/HCPCS: 71271; 93306

== ENCOUNTER → 2025-05-20 11:58 | Outpatient (CLI) | payer MEDICARE, OTHER, SELFPAY ==
[2025-05-20 12:53] LABS: Estimated Glomerular Filt Rate > 60 mL/min (>60)
[2025-05-20 13:47] LABS: Free T3, Triiodothyronine Free 7.24 pg/mL (2.77-5.27)
[2025-05-20 14:01] LABS: TSH w/ Reflex to FT4 1.38 uIU/mL (0.47-4.68)
== END ==
PROVIDERS: Family Provider Internal Medicine Critical Care Medicine; PCP Family Medicine; Referring Provider Family Medicine; Visit Provider Family Medicine
DX: Z00.00 Encounter for general adult medical examination without abnormal findings (principal); M51.16 Intervertebral disc disorders with radiculopathy, lumbar region; M47.26 Other spondylosis with radiculopathy, lumbar region; M54.9 Dorsalgia, unspecified; F32.9 Major depressive disorder, single episode, unspecified; G89.29 Other chronic pain; M81.0 Age-related osteoporosis without current pathological fracture; J44.9 Chronic obstructive pulmonary disease, unspecified; M79.7 Fibromyalgia; R91.8 Other nonspecific abnormal finding of lung field
CPT/HCPCS: 36415; 82565; 84443; 84481

== ENCOUNTER → 2025-05-20 13:13 | Outpatient (CLI) | payer MEDICARE, OTHER, SELFPAY ==
--- NOTE | 2025-05-20 13:35 | DI.CT.S_ITS ---
PROCEDURE: CT CHEST W CON INDICATIONS: 2.7 cm irregular opacity in the right upper lobe TECHNIQUE: After the administration of intravenous contrast, 5 mm thick sections acquired from the pulmonary apices to the posterior costophrenic angles. 1 mm axial lung, 5 mm thick coronal and sagittal reformats and 7 mm axial MIP were acquired. For radiation dose reduction, the following was used: automated exposure control, adjustment of mA and/or kV according to patient size. COMPARISON: [facility], CT, CT LUNG LOW DOSE SCREENING, 11/03/2023, 13:11. [facility], CT, CT LUNG LOW DOSE SCREENING, 05/14/2025, 14:36. [facility], CT, CT CHEST WO CON, 08/18/2021, 12:57. FINDINGS: Image quality: Diagnostic. Lower Neck: No enlarged lymph nodes. Thyroid: Normal CT appearance. Axillae: No enlarged lymph nodes. Chest Wall: Unremarkable. Bones: Unremarkable. Lungs and Pleura: A flat linear peribronchovascular opacity in the right suprahilar region of the right upper lobe has increased size and nodular component since the prior exam 11/03/23. A solid component measures 1.0 x 2.2 cm, previously about 0.9 x 0.8 cm. No immediately adjacent satellite nodules. Findings are on a background of moderately severe emphysematous disease and mild subpleural reticulation anteriorly in the upper lobes. Spiculated nodular density in the left upper lobe is minimally more prominent, potentially due to slice selection. No pleural effusion. Heart: Normal size heart with small pericardial effusion. Moderate coronary artery calcification. Thoracic Vessels: The aorta and pulmonary arteries demonstrate normal size. Mediastinum and Lawanda: Right hilar and mediastinal adenopathy. This has only mildly increased compared to 08/18/21 and is most likely reactive due to emphysema. Underlying neoplasm is not excluded. Esophagus: No wall thickening. No hiatal hernia. Upper Abdomen: Visualized upper abdomen solid organs and bowel loops appear normal. IMPRESSION: Increase in size of right upper lobe lung nodule with morphology of platelike atelectatic change. However, solid nodular component has increased in size over 18 months. PET-CT is recommended for further evaluation of the nodule and mediastinal lymph nodes. One tissue sampling is needed, this lesion is most amenable to endobronchial biopsy. Moderate coronary artery calcification. Dictated by: Kalani Thomas M.D. on 05/20/2025 at 14:27 Approved by: Kalani Thomas M.D. on 05/20/2025 at 14:38
== END ==
PROVIDERS: Family Provider Internal Medicine Critical Care Medicine; PCP Family Medicine; Referring Provider Family Medicine; Visit Provider Family Medicine
DX: Z00.00 Encounter for general adult medical examination without abnormal findings (principal); I31.39 Other pericardial effusion (noninflammatory); I25.10 Atherosclerotic heart disease of native coronary artery without angina pectoris; R91.8 Other nonspecific abnormal finding of lung field; M51.16 Intervertebral disc disorders with radiculopathy, lumbar region; M47.26 Other spondylosis with radiculopathy, lumbar region; M54.9 Dorsalgia, unspecified; F32.9 Major depressive disorder, single episode, unspecified; M81.0 Age-related osteoporosis without current pathological fracture; J44.9 Chronic obstructive pulmonary disease, unspecified; M79.7 Fibromyalgia; G89.29 Other chronic pain
CPT/HCPCS: 36415; 71260; 82565; 84443; 84481; Q9967

== ENCOUNTER → 2025-06-24 14:27 | Outpatient (CLI) | payer MEDICARE, OTHER, SELFPAY ==
--- NOTE | 2025-06-24 14:30 | DI.RAD.S_ITS ---
PROCEDURE: XR DEXA AXIAL SKELETON INDICATIONS: Osteoporosis COMPARISON: [facility], , XR DEXA AXIAL SKELETON, 02/07/2023, 11:40. FINDINGS: Lumbar Spine: Bone mineral density is 0.728 g/cm2, T score -2.9. Prior DEXA was performed using dissimilar scan type or analysis method. Left Femoral Neck: Bone mineral density 0.491 g/cm2, T score -3.2. Left Hip: Bone mineral density 0.61 to g/cm2, T score -2.7. Prior DEXA was performed using dissimilar scan type or analysis method. Fracture Risk Calculation (when applicable): FRAX score not reported due to T-score less than -2.5. (T score greater or equal to -1.0 to: NORMAL) (T score from -1.1 to -2.4: OSTEOPENIA) (T score less than or equal to -2.5: OSTEOPOROSIS) IMPRESSION: By WHO criteria, patient has osteoporosis. Follow-up guidelines as follows: Osteoporosis: Consider a repeat DEXA and Vertebral Fracture Assessment (VFA) exam in 2 years or sooner if medically necessary, to reassess this patient's status. Osteopenia: Consider a repeat DEXA in 2-3 years to reassess this patient's status, or if there is a new clinical indication. Normal: Consider a repeat DEXA in 5 years or sooner, or if there is a new clinical indication. All treatment decisions require clinical judgment and consideration of individual patient factors, including patient preferences, comorbidities, previous drug use, risk factors not captured in the FRAX model (e.g., frailty, falls, vitamin D deficiency, increased bone turnover, interval significant decline in bone density ) and possible under- or over-estimation of fracture risk by FRAX. In addition, the NOF Guide recommends that FDA-approved medical therapies be considered in postmenopausal women and men age >= 50 years with a: * Hip or vertebral (clinical or morphometric) fracture * T-score of <=-2.5 at the spine or hip * Ten-year fracture probability by FRAX of >= 3% for hip fracture or >=20% for major osteoporotic fracture. Approved by: Sedrick Thrasher M.D. on 06/24/2025 at 23:16
== END ==
PROVIDERS: Family Provider Internal Medicine Critical Care Medicine; PCP Family Medicine; Referring Provider Family Medicine; Visit Provider Family Medicine
DX: M81.0 Age-related osteoporosis without current pathological fracture (principal)
CPT/HCPCS: 77080

== ENCOUNTER → 2025-08-04 16:00 | Outpatient (CLI) | payer MEDICARE, OTHER, SELFPAY ==
[2025-08-04 17:28] LABS: Blood Urea Nitrogen 14 mg/dL (7-17); Calcium 10.2 mg/dL (8.4-10.2); Carbon Dioxide 27 mmol/L (22-32); Chloride 103 mmol/L (98-107); Estimated Glomerular Filt Rate > 60 mL/min (>60); Glucose 92 mg/dL (70-99); HEMOLYSIS < 15 (0-50); Potassium 3.9 mmol/L (3.4-5.1); Sodium 140 mmol/L (137-145)
== END ==
PROVIDERS: PCP Family Medicine; Referring Provider Internal Medicine Cardiovascular Disease; Visit Provider Internal Medicine Cardiovascular Disease
DX: I25.10 Atherosclerotic heart disease of native coronary artery without angina pectoris (principal); R06.02 Shortness of breath; R07.2 Precordial pain; R94.30 Abnormal result of cardiovascular function study, unspecified
CPT/HCPCS: 36415; 80048

== ENCOUNTER → 2025-10-20 14:49 | Outpatient (CLI) | payer MEDICARE, OTHER, SELFPAY ==
--- NOTE | 2025-10-20 14:50 | DI.CT.S_ITS ---
PROCEDURE: CT CHEST WO CON INDICATIONS: Lung nodule, eval for change TECHNIQUE: Noncontrast 2.0-2.5 mm thick sections acquired from the pulmonary apices to the posterior costophrenic angles. 7 mm thick axial MIP and 5 mm coronal and sagittal reformats were then acquired. For radiation dose reduction, the following was used: automated exposure control, adjustment of mA and/or kV according to patient size. COMPARISON: Prior PET-CT 07/02/2025 [facility]. FINDINGS: Image quality: Diagnostic. Some images are limited by beam hardening artifacts, decreased resolution. Allowing for differences in technique and measurement placement, right upper lobe plate like solid nodule measures up to approximately 1.7 cm AP by 0.6 cm transverse (series 3, image 58) unchanged or slightly decreased in size. Approximately 0.7 cm diameter nodule left upper lobe anteriorly (series 3, image 94) slightly decreased from 0.9 cm on the prior exam. New area of subsegmental atelectasis and/or pleural parenchymal scarring less likely subsolid nodule 1.5 cm left lower lobe posterior basal (series 3, image 166. Moderate COPD/emphysematous changes unchanged. Moderate vascular calcifications three-vessel coronary artery disease unchanged. Degenerative changes of the thoracic spine unchanged. No pneumothorax, no pleural effusion, no pericardial effusion. No abnormally enlarged mediastinal or hilar lymph nodes. Few small less than 1 cm lymph nodes unchanged. Heart: Heart size is normal. Thoracic Vessels: The aorta and pulmonary arteries demonstrate normal size. IMPRESSION: Right upper lobe nodule unchanged or slightly decreased in size as discussed above. Left upper lobe nodule slightly decreased in size. New area of opacification left lower lobe posterior basal. Remainder of the exam unchanged. Continued follow-up is needed. Follow-up PET- CT could be considered. Fleischner Society criteria for SOLID lung nodule followup. Nodule size (mm)Low-risk patientHigh-risk patient<6 (single or multiple)No routine followup.Optional CT at 12 months. 6-8 (single or multiple)CT at 6-12 months, then optional CT at 18-24 mo.CT at 6-12 months, then CT at 18-24 months. >8 (single)CT at 3 months, PET-CT, or biopsy. Same as for low-risk pts. >8 (multiple)CT at 3-6 months, then optional CT at 18-24 mo.CT at 3-6 months, then CT at 18-24 months. Fleischner Society criteria for SUB-SOLID lung nodule followup. Solitary pure ground-glass nodules<6 mm (ground glass or part solid)No followup needed. 6 mm or larger (ground glass)CT at 6-12 months to confirm persistence, then CT every 2 years until 5 years.6 mm or larger (part solid)CT at 3-6 months to confirm persistence, then annual CT until 5 years if unchanged and solid component remains <6 mm. Multiple sub-solid nodules<6 mmCT at 3-6 months, then CT consider at 2 & 4 years for high risk patients. [address] at 3-6 months. Subsequent management based on most suspicious lesions. Recommendations do not apply to lung cancer screening, patients with immunosuppression, or patients with known primary cancer. Dictated by: Jet Medrano M.D. on 10/21/2025 at 9:47 Approved by: Jet Medrano M.D. on 10/21/2025 at 10:15
== END ==
PROVIDERS: PCP Family Medicine; Referring Provider Internal Medicine Critical Care Medicine; Visit Provider Internal Medicine Critical Care Medicine
DX: R91.1 Solitary pulmonary nodule (principal)
CPT/HCPCS: 71250